=== PATIENT | male | born 1950 | race American Indian/Alaskan Native ===

== ENCOUNTER → 2024-03-05 12:22 | Outpatient (CLI) | payer OTHER, MEDICAID, SELFPAY ==
--- NOTE | 2024-03-05 12:29 | EKG_ITS ---
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
[2024-03-05 13:06] LABS: Appearance Urine UA CLEAR; Bilirubin Urine UA NEGATIVE (NEGATIVE); Color Urine UA YELLOW; Glucose Urine UA NEGATIVE (Negative); Ketones Urine UA NEGATIVE (NEGATIVE); Leukocyte Esterase Urine UA NEGATIVE (NEGATIVE); Nitrite Urine UA NEGATIVE (Negative); Occult Blood Urine UA 3+ (Negative); Protein Urine UA NEGATIVE (Negative); Urobilinogen Urine UA 0.2 E.U./dL (0.2)
[2024-03-05 13:19] LABS: Add Manual Diff / Slide Review NO; Basophils Absolute Auto 0 /uL (0-100); Basophils Percent Auto 0.6 % (0-2); Eosinophils Absolute Auto 200 /uL (0-450); Eosinophils Percent Auto 3.1 % (2-4); Hematocrit 39.8 % (41-53); Hemoglobin 13.6 g/dL (13.5-17.5); Lymphocytes Absolute Auto 1200 /uL (1100-4500); Lymphocytes Percent Auto 20.3 % (25-40); Mean Corpuscular HGB Conc 34.1 % (30-36); Mean Corpuscular Hemoglobin 32.5 PG (26-34); Mean Corpuscular Volume 95.4 fL (80-100); Monocytes Absolute Auto 500 /uL (0-900); Monocytes Percent Auto 8.4 % (3-14); Neutrophils Absolute Auto 4100 /uL (1500-7000); Neutrophils Percent Auto 67.6 % (50-75); Platelet Count 230 X10^3/uL (150-400); Red Blood Cell Count 4.17 X10^6/uL (4.5-5.9); Red Cell Distribution Width 13.4 % (11.6-14.8)
[2024-03-05 13:25] LABS: Bacteria Urine Occasional (0-1); Culture Indicated Urine Cult Not Indicated; RBC Urine 10-30/HPF (0-5/HPF); Squamous Epithelial Cell Urine 0-1 /HPF (0-5/HPF); Urine Volume 10mL (spun); WBC Urine 0-1/HPF (0-5/HPF)
[2024-03-05 13:46] LABS: BUN Creatinine Ratio 14.6 (6-22); Blood Urea Nitrogen 15 mg/dL (9-20); Calcium 9.3 mg/dL (8.4-10.2); Carbon Dioxide 22 mmol/L (22-32); Chloride 110 mmol/L (98-107); Estimated Glomerular Filt Rate > 60 mL/min (>60); Glucose 112 mg/dL (80-110); HEMOLYSIS < 15 (0-50); Potassium 4.7 mmol/L (3.4-5.1); Sodium 139 mmol/L (137-145)
[2024-03-05 14:12] LABS: Hemoglobin A1C% w Est Avg Glu 5.9 % (4.0-6.0)
== END ==
PROVIDERS: PCP Internal Medicine; Referring Provider Orthopaedic Surgery; Visit Provider Orthopaedic Surgery
DX: Z01.818 Encounter for other preprocedural examination (principal); R73.9 Hyperglycemia, unspecified; Z01.812 Encounter for preprocedural laboratory examination; N39.0 Urinary tract infection, site not specified
CPT/HCPCS: 36415; 80048; 81001; 83036; 85025; 93005; 93010

== ENCOUNTER → 2024-05-13 10:11 | Outpatient (CLI) | payer OTHER, MEDICAID, SELFPAY ==
--- NOTE | 2024-05-13 19:55 | DI.NM.S_ITS ---
DATE OF SERVICE: 05/13/2024 NUCLEAR CARDIOLOGY MYOCARDIAL PERFUSION STUDY PROCEDURE PERFORMED: Pharmacologic vasodilator stress and rest myocardial perfusion imaging with gating to assess ejection fraction and regional wall motion. ORDERING PROVIDER: Tomasa Crow MD. INDICATIONS: The patient is a 74-year-old male with a history of previous myocardial infarction who requires preoperative risk assessment prior to hip surgery. CARDIAC STRESS: The patient was given regadenoson 0.4 mg per protocol with a normal hemodynamic response. He had minimal dyspnea but no chest discomfort. His resting ECG shows sinus rhythm with normal ST segments. There are no significant ST-segment shifts or arrhythmias with stress. Per protocol, 26.3 millicuries of technetium-99m Myoview was injected and he was imaged 15 minutes later using a gated SPECT acquisition protocol. Earlier in the day while at rest, he had been injected with 10.0 millicuries of technetium-99m Myoview and was imaged 15 minutes later, again using a gated SPECT acquisition protocol. FINDINGS: 1. Raw data. There is fair myocardial tracer uptake. The lung/heart ratio of tracer activity is elevated at 0.52, which can be a sign of pulmonary congestion but is nonspecific with the use of vasodilator stress and clinical correlation is recommended. The TID ratio is normal at 1.07. 2. Quantitated gated SPECT: Post-stress ejection fraction is estimated at 68% without any focal wall motion abnormality and specifically the inferior wall appears to have normal contractility. The resting ejection fraction is 69% with a normal resting end-diastolic volume of 85 mL. 3. Myocardial perfusion imaging: Post-stress supine images show a moderate perfusion defect throughout the inferior wall, extending to the apex. This defect nearly completely resolves on the prone images suggesting a large component is likely diaphragmatic attenuation although a very subtle defect remains present in the distal inferolateral wall suggesting a possible small true perfusion defect. The resting images continue to show an inferior wall perfusion defect, although with mild improvement, particularly distally, but no other areas of improvement. IMPRESSION: 1. Probable abnormal myocardial perfusion study but likely low risk. 2. Moderate-sized, predominantly fixed, but slightly reversible perfusion defect in the inferior wall that nearly completely resolves on the prone images suggesting significant attenuation artifact, but with a slight persistent defect in the distal inferolateral wall, suggesting a possible small nontransmural infarct with a small volume of mild sabrina-ischemia.. 3. Normal left ventricular size and systolic function without any focal wall motion abnormality. The lung/heart ratio is moderately elevated, which can be an indication of pulmonary congestion, but is nonspecific with the use of pharmacologic vasodilator stress and clinical correlation is recommended. 4. No angina or ECG evidence of ischemia with pharmacologic vasodilator stress. There were no arrhythmias. Prasad Armendariz - FREDERICK/mary/THIERNO doc#: [id number]/job#: [id number] dd: 05/13/2024 17:06:00 dt: 05/13/2024 18:30:00 DICTATING MD/COPIES TO: Mitul Porras MD; Tomasa Crow MD COPIES MNE: STEVEN;
== END ==
PROVIDERS: PCP Internal Medicine; Referring Provider Orthopaedic Surgery; Visit Provider Orthopaedic Surgery
DX: Z01.810 Encounter for preprocedural cardiovascular examination (principal); I25.2 Old myocardial infarction
CPT/HCPCS: 78452; 93017; A9502; J2785

== ENCOUNTER → 2025-01-20 07:55 | Outpatient (CLI) | payer OTHER, MEDICAID, SELFPAY ==
--- NOTE | 2025-01-20 07:57 | DI.ECHO.S_ITS ---
[facility] : : [address] : : [place] : : [address] : : Phone: [phone] Echocardiogram Report + + :Name: MATTHEW LANE Study Date: 01/20/2025 Height: 71.5 in: :[facility] ReadingLocation: Weight: 161 lb : : Gender: Male BSA: 1.9 m2 : :: 1950 Age: 74 yrs BP: 134/76 mmHg: :Reason For Study: CORONARY ARTERY DISEASE : :Ordering Physician: DOUGLAS GUPTA Performed By: Alice Barnes : :Referring: DOUGLAS GUPTA : + + Interpretation Summary 1. The left ventricular contractility is normal. Estimate ejection fraction is greater than 55% with no segmental wall motion abnormalities. No LVH. No diastolic dysfunction. 2. The right ventricular contractility is normal. 3. All cardiac chambers are of normal size. 4. No significant valvular abnormalities. 5. No obvious intracardiac shunts. 6. No obvious intracardiac masses nor thrombi. 7. No hemodynamically significant pericardial effusion. 8. Low right-sided filling pressures. Conclusion: Normal biventricular function with no significant valvular abnormalities. Procedure: A two-dimensional transthoracic echocardiogram with color flow and Doppler was performed. The study quality was technically adequate. There is no prior echocardiogram noted for this patient. The patient was in sinus rhythm with heart rates between 65-79 bpm during the exam. Left Ventricle: The left ventricle is normal in size and wall thickness. The ejection fraction is estimated to be 55-60%. Right Ventricle: The right ventricle is normal in size and function. Atria: The left atrial size is normal. Right atrial size is normal. There is no Doppler evidence for an interatrial shunt. Mitral Valve: The mitral valve leaflets appear to open well. There is trace mitral regurgitation. Aortic Valve: The aortic valve is trileaflet. The aortic valve opens well. There is no aortic valve stenosis. No aortic regurgitation is present. Tricuspid Valve: The tricuspid valve leaflets are thin and pliable. There is trace tricuspid regurgitation. Pulmonary artery pressures cannot be estimated because of the lack of a measurable TR jet velocity but the IVC suggests a CVP of around 3 mmHg. Pulmonic Valve: The pulmonic valve leaflets are thin and pliable; valve motion is normal. There is no pulmonic valvular regurgitation. Great Vessels: The aortic root is normal size. The dimensions of the ascending aorta are normal. The IVC is of normal diameter and collapses greater than 50% with a sniff. This suggests a low right atrial pressure of 3 mm Hg. Pericardium/ Pleura There is no pericardial effusion. There is no pleural effusion. MMode/2D Measurements & Calculations LVIDd: 4.8 cm LVOT diam: 2.1 cm LVIDs: 3.0 cm Ao root diam: 3.5 cm FS: 36.8 % asc Aorta Diam: 3.1 cm IVSd: 0.83 cm LVPWd: 0.65 cm LV noland. diameter/BSA (cm/m^2): 2.5 LV sys. diameter/BSA (cm/m^2): 1.6 LA A2 area: 14.3 cm2 RA long axis: 4.4 cm LA A4 area: 14.3 cm2 RA area: 13.5 cm2 LA length (vol): 4.3 cm RA vol: 34.9 ml LA vol: 40.0 ml RA : 18.1 ml/m2 LA vol index: 20.6 ml/m2 IVC diam: 0.89 cm RVD1 (basal): 3.5 cm RVD2 (mid): 4.0 cm TAPSE: 2.1 cm Doppler Measurements & Calculations Ao V2 max: 91.4 cm/sec LVOT Max Srinivas: 92.7 cm/sec Ao V2 mean: 62.4 cm/sec LV V1 max P.4 mmHg Ao max P.3 mmHg LV V1 VTI: 19.5 cm Ao mean P.8 mmHg NADIA(I,D): 3.7 cm2 Ao V2 VTI: 17.8 cm NADIA(V,D): 3.4 cm2 sev ratio: 1.1 NADIA indexed to BSA (cm^2/m^2): 1.9 MV E max srinivas: 63.9 cm/sec PA V2 max: 91.0 cm/sec MV A max srinivas: 60.9 cm/sec PA V2 mean: 58.2 cm/sec MV E/A: 1.0 PA mean P.6 mmHg Med Peak E' Srinivas: 10.1 cm/sec PA pr(Accel): 25.9 mmHg E/E' med: 6.3 Lat Peak E' Srinivas: 8.1 cm/sec E/E' lat: 7.9 E/e' average: 7.1 MV dec time: 0.20 sec MVA(VTI): 3.0 cm2 MV V2 mean: 48.0 cm/sec SV(LVOT): 66.4 ml MV mean P.0 mmHg MV V2 VTI: 22.2 cm Reading Physician:BRIE
== END ==
PROVIDERS: Referring Provider Internal Medicine; Visit Provider Internal Medicine
DX: I25.119 Atherosclerotic heart disease of native coronary artery with unspecified angina pectoris (principal)
CPT/HCPCS: 93306